=== PATIENT | female | born 1995 | race Caucasian/White ===

== ENCOUNTER 2020-06-11 20:42 | Observation (INO) ==
[2020-06-11 20:50] VITALS: BMI 21.6
[2020-06-11] MEDS ORDERED: NS 1000 ML 1,000 ML IV ONE (21:15)
[2020-06-11] MEDS ORDERED: ZOFRAN INJ 4 MG VIAL IVP ONE (21:15)
--- NOTE | 2020-06-11 21:15 | DR.NAUSEAF ---
HPI Time Seen Time Seen by Provider: 06/11/20 21:06 Primary Care Physician Primary Care Physician: NFD Complaints Chief Complaint Doctors Comments: Seen in [facility] 4 days ago for same. Says she got no RX for nausea Chief Complaint:: PT STATED SHE STARTED VOMITING , ACHING AND HAVING ABDOMINAL PAIN LAST WEEK. PT STATED TODAY THE SYMPTOMS ARE GETTING WORSE. Self Treatment fo Chief Complaint: TYLENOL AND MOTRIN Reviewed Nurses Notes Reviewed: Yes Source History Provided: Patient Mode of Arrival Mode of Arrival: Ambulatory Timing Onset of Chief Complaint: 06/04/20 Context Recent: denies Travel, Contact Exposure and None Possible Ingestion: Unknown History of: None Quality Quality: Food Particles Associated Signs and Symptoms Abdominal Pain Quality: Aching Abdominal Pain Location: Epigastric Symptoms: Abdominal Pain PMH PMH Past Medical History: No Past Surgical History: No Family History History of Family Medical Conditions: No Social History Alcohol Use: None Do you use any recreational Drugs:: No Lives With: Family Lives Where: Home Infectious screening In the last 2 months have you had wt loss of >10#?: NO Have you had fever, night sweats or hemotysis?: No Have you traveled outside the country in the last 6 months?: No Isolation: Standard ROS Review of Systems Constitutional: No Symptoms Reported Eyes: No Symptoms Reported ENTM: No Symptoms Reported Respiratoy: No Symptoms Reported Cardiovascular: No Symptoms Reported Gastrointestinal/Abdominal: Abdominal Pain and Vomiting Genitourinary: No Symptoms Reported Neurological: No Symptoms Reported Musculoskeletal: No Symptoms Reported Integumentary: No Symptoms Reported Hematologic/Lymphatic: No Symptoms Reported Endocrine: No Symptoms Reported Psychiatric: No Symptoms Reported All Other Systems: Reviewed and Negative PE Vital Signs Vitals: Temperature 99.2 F Pulse Rate 92 Respiratory Rate 18 Blood Pressure 112/72 O2 Sat by Pulse Oximetry 98 General Limitations: No Limitations General Appearance: Alert and In No Apparent Distress Head Head Exam: Normal Inspection, Atraumatic and Normocephalic Eyes Eye exam: Normal Appearance and EOMI ENT ENT Exam: Normal Exam and Other (poor dentition) Neck Neck Exam: Normal Inspection, Full ROM and Trachea Midline Chest Chest Inspection: Normal Inspection Respiratory Respiratory Exam: Normal Lung Sounds Bilat Respiratory Exam: Bilateral: Clear to Auscultation Cardiovascular Cardiovascular Exam: Regular Rate Abdominal Exam Abdominal Exam: Normal Inspection, Normal Bowel Sounds, Soft and Tenderness; negative Distention and Guarding Abdominal Tenderness: Epigastrium Rectal Rectal Exam: Deferred External Exam: Female: Deferred : Speculum Exam (Female): Deferred : Bimanual Exam (female): Deferred Back Back Exam: Normal Inspection Neurologic Neurological Exam: Alert, Oriented X3, CN II-XII Intact and Normal Gait Psychiatric Psychiatric Exam: Normal Affect Skin Skin Exam: Normal Color COURSE Treatment Treatment: 2200: due to elevated WBC will get Ct scan abdo/pelvis. Patient refusing IV. Consultation Called: 23:06 Call Returned: 23:07 Consultation Comments: case discussed with Yousuf admit to medical start antibiotics, NPO 2330: case discussed with DR. Au admit ROR Labs Reviewed Result Diagrams: 06/11/20 21:48 06/11/20 21:48 Laboratory: WBC 18.2 X10^3/uL (3.6-10.0) H 06/11/20 21:48 RBC 4.81 X10^6/uL (3.5-5.4) 06/11/20 21:48 Hgb 14.5 g/dL (12.0-16.0) 06/11/20 21:48 Hct 42.1 % (36.0-47.0) 06/11/20 21:48 MCV 87.5 fL (80.0-100.0) 06/11/20 21:48 MCH 30.2 pg (27.0-34.0) 06/11/20 21:48 MCHC 34.5 g/dL (33.0-35.0) 06/11/20 21:48 RDW 13.3 % (11.6-16.5) 06/11/20 21:48 Plt Count 214 X10^3/uL (150.0-450.0) 06/11/20 21:48 MPV 9.6 fL (7.4-11.0) 06/11/20 21:48 Neut % (Auto) 38.6 % (42.0-75.0) L 06/11/20 21:48 Lymph % (Auto) 54.3 % (21.0-51.0) H 06/11/20 21:48 [place] % (Auto) 5.9 % (0.0-13.0) 06/11/20 21:48 Eos % (Auto) 0.7 % (0.9-2.9) L 06/11/20 21:48 Baso % (Auto) 0.5 % (0.2-1.0) 06/11/20 21:48 Neut # (Auto) 7.0 x10^3/uL (2.2-4.8) H 06/11/20 21:48 Lymph # (Auto) 9.9 X10^3/uL (1.3-2.9) H 06/11/20 21:48 [place] # (Auto) 1.1 x10^3/uL (0.3-0.8) H 06/11/20 21:48 Eos # (Auto) 0.1 x10^3/uL (0.0-0.2) 06/11/20 21:48 Baso # (Auto) 0.1 X10^3/uL (0.0-0.1) 06/11/20 21:48 Absolute Nucleated RBC 0.2 /100WBC 06/11/20 21:48 Sodium 138 mmol/L (136-145) 06/11/20 21:48 Corrected Sodium TNP 06/11/20 21:48 Potassium 3.3 mmol/L (3.5-5.1) L 06/11/20 21:48 Chloride 97 mmol/L (98-107) L 06/11/20 21:48 Carbon Dioxide 30.2 mmol/L (21-32) 06/11/20 21:48 BUN 13 mg/dL (7-18) 06/11/20 21:48 Creatinine 0.64 mg/dL (0.55-1.02) 06/11/20 21:48 Est GFR (MDRD) Af Amer > 60 (>60) 06/11/20 21:48 Est GFR (MDRD) Non-Af > 60 (>60) 06/11/20 21:48 Glucose 99 mg/dL (65-99) 06/11/20 21:48 Calcium 9.6 mg/dL (8.5-10.1) 06/11/20 21:48 Corrected Calcium TNP 06/11/20 21:48 Total Bilirubin 1.20 mg/dL (0.2-1.0) H 06/11/20 21:48 AST 624 Units/L (15-37) H 06/11/20 21:48 ALT 1366 Units/L (12-78) H 06/11/20 21:48 Alkaline Phosphatase 317 Units/L (46-116) H 06/11/20 21:48 Total Protein 8.7 g/dL (6.4-8.2) H 06/11/20 21:48 Albumin 4.1 g/dL (3.4-5.0) 06/11/20 21:48 Globulin 4.6 g/dL (2.5-4.5) H 06/11/20 21:48 Albumin/Globulin Ratio 0.9 Ratio (1.1-2.1) L 06/11/20 21:48 Lipase 73 Units/L (73-393) 06/11/20 21:48 Specimen Type Clean catch urine 06/11/20 21:52 Urine Color Yellow (YELLOW) 06/11/20 21:52 Urine Appearance Clear (CLEAR) 06/11/20 21:52 Urine pH 7.0 (5.0 - 8.0) 06/11/20 21:52 Ur Specific [place] 1.010 (1.000-1.030) 06/11/20 21:52 Urine Protein 2+ (NEGATIVE) 06/11/20 21:52 Urine Glucose (UA) Negative (NEGATIVE) 06/11/20 21:52 Urine Ketones 2+ (NEGATIVE) 06/11/20 21:52 Urine Occult Blood Negative (NEGATIVE) 06/11/20 21:52 Urine Nitrite Negative (NEGATIVE) 06/11/20 21:52 Urine Bilirubin Negative (NEGATIVE) 06/11/20 21:52 Urine Urobilinogen 3+ (NORMAL) 06/11/20 21:52 Ur Leukocyte Esterase 1+ (NEGATIVE) 06/11/20 21:52 Urine RBC None seen /HPF (0-3) 06/11/20 21:52 Urine WBC 0-2 /HPF (0-5) 06/11/20 21:52 Ur Squamous Epith Cells Rare /HPF (NEGATIVE) 06/11/20 21:52 Urine Bacteria Trace /HPF (NEGATIVE) 06/11/20 21:52 Ur Culture Indicated? No/not indicated 06/11/20 21:52 Urine Opiates Screen Negative (NEG=<300) 06/11/20 21:52 Urine Methadone Screen Negative (NEG=<300) 06/11/20 21:52 Ur Barbiturates Screen Negative (NEG=<200) 06/11/20 21:52 Ur Phencyclidine Scrn Negative (NEG=<25) 06/11/20 21:52 Ur Amphetamines Screen Negative (NEG=<1000) 06/11/20 21:52 U Benzodiazepines Scrn Negative (NEG=<200) 06/11/20 21:52 Urine Cocaine Screen Negative (NEG=<300) 06/11/20 21:52 U Marijuana (THC) Screen Negative (NEG=<50) 06/11/20 21:52 XRAY XRAY Interpreted by: Radiologist X-ray Results: CT abdo/pelvis: no definite acute findings, questionable appenix inflammation Opioid Opioid Risk Tool Total: 0 Total Score Risk Category: Low Risk Copyright: John RADFORD predicting aberrant behaviors
[2020-06-11] MEDS ORDERED: ZOFRAN INJ 4 MG VIAL ONE (21:18)
[2020-06-11] MEDS ORDERED: NS 1000 ML 0 ML ONE (21:18)
[2020-06-11] MEDS ORDERED: ZOFRAN INJ 4 MG VIAL IM ONE (21:33)
[2020-06-11 21:58] LABS: BASOPHILS # (AUTO) 0.1 X10^3/uL (0.0-0.1); BASOPHILS % (AUTO) 0.5 % (0.2-1.0); EOSINOPHILS # (AUTO) 0.1 x10^3/uL (0.0-0.2); EOSINOPHILS % (AUTO) 0.7 % (0.9-2.9); HEMATOCRIT 42.1 % (36.0-47.0); HEMOGLOBIN 14.5 g/dL (12.0-16.0); LYMPHOCYTES # (AUTO) 9.9 X10^3/uL (1.3-2.9); LYMPHOCYTES % (AUTO) 54.3 % (21.0-51.0); MEAN CORPUSCULAR HEMOGLOBIN 30.2 pg (27.0-34.0); MEAN CORPUSCULAR HGB CONC 34.5 g/dL (33.0-35.0); MEAN CORPUSCULAR VOLUME 87.5 fL (80.0-100.0); MEAN PLATELET VOLUME 9.6 fL (7.4-11.0); MONOCYTES # (AUTO) 1.1 x10^3/uL (0.3-0.8); MONOCYTES % (AUTO) 5.9 % (0.0-13.0); NEUTROPHILS % (AUTO) 38.6 % (42.0-75.0); PLATELET COUNT 214 X10^3/uL (150.0-450.0); RED BLOOD COUNT 4.81 X10^6/uL (3.5-5.4); RED CELL DISTRIBUTION WIDTH 13.3 % (11.6-16.5); WHITE BLOOD COUNT 18.2 X10^3/uL (3.6-10.0)
[2020-06-11 22:02] LABS: BILIRUBIN,URINE NEGATIVE (NEGATIVE); BLOOD/HEMOGLOBIN,URINE NEGATIVE (NEGATIVE); GLUCOSE, URINE NEGATIVE (NEGATIVE); KETONES,URINE 2+ (NEGATIVE); LEUKOCYTE ESTERASE ,URINE 1+ (NEGATIVE); NITRITES,URINE NEGATIVE (NEGATIVE); PROTEIN,URINE 2+ (NEGATIVE); UROBILINOGEN,URINE 3+ (NORMAL)
[2020-06-11 22:17] LABS: APPEARANCE,URINE CLEAR (CLEAR); COLOR,URINE YELLOW (YELLOW)
[2020-06-11 22:18] LABS: RBC,URINE NONE SEEN /HPF (0-3); SQUAMOUS EPITHELIAL CELL,UR RARE /HPF (NEGATIVE)
[2020-06-11 22:19] LABS: BACTERIA,URINE TRACE /HPF (NEGATIVE)
[2020-06-11 22:42] LABS: ALBUMIN 4.1 g/dL (3.4-5.0); ALKALINE PHOSPHATASE 317 Units/L (46-116); ASPARTATE AMINO TRANSFERASE 624 Units/L (15-37); BLOOD UREA NITROGEN 13 mg/dL (7-18); CALCIUM 9.6 mg/dL (8.5-10.1); CARBON DIOXIDE 30.2 mmol/L (21-32); CHLORIDE 97 mmol/L (98-107); CREATININE 0.64 mg/dL (0.55-1.02); SODIUM 138 mmol/L (136-145); TOTAL PROTEIN 8.7 g/dL (6.4-8.2); eGFR NON BLACK RACES > 60 (>60)
[2020-06-11 22:43] LABS: ALANINE AMINOTRANSFERASE 1366 Units/L (12-78)
--- NOTE | 2020-06-11 22:44 | CT ---
STUDY: CT ABDOMEN AND PELVIS WITHOUT IV CONTRASTCOMPARISON: NoneTECHNIQUE: Axial images were obtained of the abdomen and pelvis without IV contrast. Sagittal and coronal reformatted images were provided. All images were reviewed in a variety of windows and levels.RADIATION REDUCTION TECHNIQUE: Automated exposure control, adjustment of the mA or kV according to patient size, or iterative reconstruction techniques were used.HISTORY: PT STATED SHE STARTED VOMITING, ACHING AND HAVING ABDOMINAL PAIN LAST WEEK. PT STATED TODAY THE SYMPTOMS ARE GETTING WORSE.FINDINGS:Please note that lack of IV contrast does limit evaluation of the soft tissues and vascular detail.The visualized lower lung zones are clear. The heart size is within normal limits. There is no evidence of a pericardial effusion.The liver, spleen, pancreas, adrenal glands, and kidneys are grossly unremarkable. The gallbladder is grossly unremarkable.There is no evidence of stones or signs of obstructive uropathy.The uterus is grossly unremarkable. The adnexa are not clearly visualized.The stomach, small bowel, and colon are grossly unremarkable. There is a tubular structure with a calcification measuring 9 mm in diameter near the cecum that is worrisome for a dilated appendix with an appendiculith. However, there are no surrounding inflammatory changes seen. Please note that this tubular structure which may represent the appendix is not seen in its entirety on this examination.There is no evidence of retroperitoneal or mesenteric lymphadenopathy.The visualized bones are unremarkable. There are no concerning lytic or blastic lesions identified.IMPRESSION:1. No evidence of stones or signs of obstructive uropathy2. No evidence of bowel obstruction or gastroenteritis3. There is a tubular structure with a focal calcification which measures 9 mm in diameter located near the cecum. This could represent a dilated appendix with an appendicalith. However, it should be noted that there are no surrounding inflammatory changes. Based on these imaging features, I would classify this as equivocal for acute appendicitis.4. No CT evidence of diverticulitisElectronically signed by: Sacha Lugo (Jun 11, 2020 22:42:39)
[2020-06-11] MEDS ORDERED: DEMEROL INJ IVP PRN (23:42)
[2020-06-11] MEDS ORDERED: ZOFRAN INJ 4 MG VIAL IVP PRN (23:42)
[2020-06-11] MEDS ORDERED: NS 1000 ML 1,000 ML ONE (23:51)
[2020-06-11] MEDS ORDERED: ZOSYN VIAL 3.375 GRAMS IV ONE (23:51)
[2020-06-11] MEDS ORDERED: NS 100 ML IV + SPIKE MINIBAG* 100 ML IV ONE (23:52)
[2020-06-12] MEDS: NS 1000 ML 1,000 ML IV SCH ×4 (00:05→21:15)
[2020-06-12] MEDS: ZOSYN VIAL 3.375 GRAMS 3.375 G in NS 100 ML IV + SPIKE MINIBAG* 100 ML IV SCH ×4 (00:06→21:14)
[2020-06-12] MEDS ORDERED: ZOFRAN INJ 4 MG VIAL ONE ×2 (01:17→08:51)
[2020-06-12] MEDS ORDERED: ZOSYN VIAL 3.375 GRAMS IV ONE ×2 (05:32→14:04)
[2020-06-12] MEDS ORDERED: NS 100 ML IV + SPIKE MINIBAG* 100 ML IV ONE ×2 (05:33→14:04)
[2020-06-12 05:37] LABS: BASOPHILS # (AUTO) 0.1 X10^3/uL (0.0-0.1); BASOPHILS % (AUTO) 0.5 % (0.2-1.0); EOSINOPHILS # (AUTO) 0.2 x10^3/uL (0.0-0.2); EOSINOPHILS % (AUTO) 1.8 % (0.9-2.9); HEMATOCRIT 39.7 % (36.0-47.0); HEMOGLOBIN 13.4 g/dL (12.0-16.0); LYMPHOCYTES # (AUTO) 7.1 X10^3/uL (1.3-2.9); MEAN CORPUSCULAR HEMOGLOBIN 29.6 pg (27.0-34.0); MEAN CORPUSCULAR HGB CONC 33.8 g/dL (33.0-35.0); MEAN CORPUSCULAR VOLUME 87.3 fL (80.0-100.0); MEAN PLATELET VOLUME 10.2 fL (7.4-11.0); MONOCYTES # (AUTO) 1.1 x10^3/uL (0.3-0.8); MONOCYTES % (AUTO) 8.9 % (0.0-13.0); NEUTROPHILS # (AUTO) 3.4 x10^3/uL (2.2-4.8); NEUTROPHILS % (AUTO) 28.8 % (42.0-75.0); PLATELET COUNT 210 X10^3/uL (150.0-450.0); RED BLOOD COUNT 4.55 X10^6/uL (3.5-5.4); RED CELL DISTRIBUTION WIDTH 13.5 % (11.6-16.5); WHITE BLOOD COUNT 11.9 X10^3/uL (3.6-10.0)
[2020-06-12 06:52] LABS: ALANINE AMINOTRANSFERASE > 1000 Units/L (12-78); ALBUMIN 3.5 g/dL (3.4-5.0); ALKALINE PHOSPHATASE 272 Units/L (46-116); ASPARTATE AMINO TRANSFERASE 469 Units/L (15-37); BLOOD UREA NITROGEN 11 mg/dL (7-18); CALCIUM 8.8 mg/dL (8.5-10.1); CHLORIDE 100 mmol/L (98-107); CREATININE 0.61 mg/dL (0.55-1.02); SODIUM 138 mmol/L (136-145); TOTAL PROTEIN 7.8 g/dL (6.4-8.2); eGFR NON BLACK RACES > 60 (>60)
--- NOTE | 2020-06-12 08:06 | US ---
HISTORYABD PAIN, ELEVATED LFTSTUDYGALL BLADDERCOMPARISONCT abdomen and pelvis from 06/11/2020.TECHNIQUERight upper quadrant sonogramFINDINGSLiver appears normal and measures up to 60 cm. Portal vein has hepatopetal flow. Gallbladder appears normal without sludge, polyps, stones, Barragan sign, or wall thickening. Common duct normal at 4 mm. The right kidney measures 11.6 cm and appears benign. IVC appears normal. Visualized pancreas appears normal.IMPRESSIONNormal right upper quadrant sonogram on the images provided.Electronically signed by: Theo Grimes (Jun 12, 2020 08:05:03)
[2020-06-12] MEDS: ZOFRAN INJ 4 MG VIAL IVP PRN ×2 (08:53→16:46)
--- NOTE | 2020-06-12 10:21 | DR.H&P ---
H&P History & Physical for Day of: H&P Date: 06/12/20 Chief Complaint Chief Complaint: N/V and abdominal pain Allergies Allergies Allergy/AdvReac Type Severity Reaction Status Date / Time No Known Drug Allergies Allergy Verified 06/11/20 20:56 History of Present Illness History of Present Illness: Cecile is a 24 y.o female who presented with intractable nausea, vomiting and abdominal pain. She also reports fever and chills. She states her Sx have been present for a week. She went to [place] [facility] with similar Sx and was told she has a miscarriage due to heavy menstrual bleeding. She states she started having abdominal pain 3 days ago. She states it's in the center and right side. She had diarrhea but that has resolved. She states she is not able to keep anything down including liquids. In the ED, CTAP showed concern for acute appendicitis due to dilated appendix but no inflammatory changes were seen. Labs showed elevated LFTs, lipase normal, low potassium. She was started on IVF, anti-emetics, pain control and kept NPO. She was also started on Zosyn. Dr. Quinones was also contacted and will be seeing the patient this morning. Labs: Lipase 73 AST/ALT trending down, Alk Phos 317 HCG (-) WBC: 11.9 UDS (-) Gallbladder U/S: normal, no gallstones and sludge seen, no GB wall thickening Plan: continue IV hydration, zofran and pain control. Continue NPO. Follow surgery recommendation, monitor AM labs. Past Surgical History Surgical History: No History Family History Family Medical History: Diabetes Mellitus and Cancer Social History Does patient currently use any type of tobacco product: Yes Have you used tobacco products in the last 12 months: Yes Type of Tobacco Use: Cigarettes Alcohol Use: None Drug Use: Prescription Drugs Prescription drug monitoring program results: PDMP reviewed and no concerns identified Medications Home Medications: No Known Drug Allergies Allergy (Verified 06/11/20 20:56) CONTINUE taking the following medications NK 06/12/20 [History] Labs Result Diagrams: 06/12/20 05:51 06/12/20 05:51 Labs: Laboratory WBC 11.9 X10^3/uL (3.6-10.0) H 06/12/20 05:51 RBC 4.55 X10^6/uL (3.5-5.4) 06/12/20 05:51 Hgb 13.4 g/dL (12.0-16.0) 06/12/20 05:51 Hct 39.7 % (36.0-47.0) 06/12/20 05:51 MCV 87.3 fL (80.0-100.0) 06/12/20 05:51 MCH 29.6 pg (27.0-34.0) 06/12/20 05:51 MCHC 33.8 g/dL (33.0-35.0) 06/12/20 05:51 RDW 13.5 % (11.6-16.5) 06/12/20 05:51 Plt Count 210 X10^3/uL (150.0-450.0) 06/12/20 05:51 MPV 10.2 fL (7.4-11.0) 06/12/20 05:51 Neut % (Auto) 28.8 % (42.0-75.0) L 06/12/20 05:51 Lymph % (Auto) 60.0 % (21.0-51.0) H 06/12/20 05:51 [place] % (Auto) 8.9 % (0.0-13.0) 06/12/20 05:51 Eos % (Auto) 1.8 % (0.9-2.9) 06/12/20 05:51 Baso % (Auto) 0.5 % (0.2-1.0) 06/12/20 05:51 Neut # (Auto) 3.4 x10^3/uL (2.2-4.8) 06/12/20 05:51 Lymph # (Auto) 7.1 X10^3/uL (1.3-2.9) H 06/12/20 05:51 [place] # (Auto) 1.1 x10^3/uL (0.3-0.8) H 06/12/20 05:51 Eos # (Auto) 0.2 x10^3/uL (0.0-0.2) 06/12/20 05:51 Baso # (Auto) 0.1 X10^3/uL (0.0-0.1) 06/12/20 05:51 Absolute Nucleated RBC 0.1 /100WBC 06/12/20 05:51 Sodium 138 mmol/L (136-145) 06/12/20 05:51 Corrected Sodium TNP 06/12/20 05:51 Potassium 3.4 mmol/L (3.5-5.1) L 06/12/20 05:51 Chloride 100 mmol/L (98-107) 06/12/20 05:51 Carbon Dioxide 27.0 mmol/L (21-32) 06/12/20 05:51 BUN 11 mg/dL (7-18) 06/12/20 05:51 Creatinine 0.61 mg/dL (0.55-1.02) 06/12/20 05:51 Est GFR (MDRD) Af Amer > 60 (>60) 06/12/20 05:51 Est GFR (MDRD) Non-Af > 60 (>60) 06/12/20 05:51 Glucose 101 mg/dL (65-99) H 06/12/20 05:51 POC Glucose (mg/dL) 88 mg/dL (65-99) 06/12/20 06:16 Calcium 8.8 mg/dL (8.5-10.1) 06/12/20 05:51 Corrected Calcium TNP 06/12/20 05:51 Total Bilirubin 1.10 mg/dL (0.2-1.0) H 06/12/20 05:51 AST 469 Units/L (15-37) H 06/12/20 05:51 ALT > 1000 Units/L (12-78) H 06/12/20 05:51 Alkaline Phosphatase 272 Units/L (46-116) H 06/12/20 05:51 Total Protein 7.8 g/dL (6.4-8.2) 06/12/20 05:51 Albumin 3.5 g/dL (3.4-5.0) 06/12/20 05:51 Globulin 4.3 g/dL (2.5-4.5) 06/12/20 05:51 Albumin/Globulin Ratio 0.8 Ratio (1.1-2.1) L 06/12/20 05:51 Lipase 73 Units/L (73-393) 06/11/20 21:48 HCG, Quant < 1 mIU/mL (0-6) 06/12/20 05:51 Specimen Type Clean catch urine 06/11/20 21:52 Urine Color Yellow (YELLOW) 06/11/20 21:52 Urine Appearance Clear (CLEAR) 06/11/20 21:52 Urine pH 7.0 (5.0 - 8.0) 06/11/20 21:52 Ur Specific [place] 1.010 (1.000-1.030) 06/11/20 21:52 Urine Protein 2+ (NEGATIVE) 06/11/20 21:52 Urine Glucose (UA) Negative (NEGATIVE) 06/11/20 21:52 Urine Ketones 2+ (NEGATIVE) 06/11/20 21:52 Urine Occult Blood Negative (NEGATIVE) 06/11/20 21:52 Urine Nitrite Negative (NEGATIVE) 06/11/20 21:52 Urine Bilirubin Negative (NEGATIVE) 06/11/20 21:52 Urine Urobilinogen 3+ (NORMAL) 06/11/20 21:52 Ur Leukocyte Esterase 1+ (NEGATIVE) 06/11/20 21:52 Urine RBC None seen /HPF (0-3) 06/11/20 21:52 Urine WBC 0-2 /HPF (0-5) 06/11/20 21:52 Ur Squamous Epith Cells Rare /HPF (NEGATIVE) 06/11/20 21:52 Urine Bacteria Trace /HPF (NEGATIVE) 06/11/20 21:52 Ur Culture Indicated? No/not indicated 06/11/20 21:52 Urine Opiates Screen Negative (NEG=<300) 06/11/20 21:52 Urine Methadone Screen Negative (NEG=<300) 06/11/20 21:52 Ur Barbiturates Screen Negative (NEG=<200) 06/11/20 21:52 Ur Phencyclidine Scrn Negative (NEG=<25) 06/11/20 21:52 Ur Amphetamines Screen Negative (NEG=<1000) 06/11/20 21:52 U Benzodiazepines Scrn Negative (NEG=<200) 06/11/20 21:52 Urine Cocaine Screen Negative (NEG=<300) 06/11/20 21:52 U Marijuana (THC) Screen Negative (NEG=<50) 06/11/20 21:52 Review of Systems Constitutional: Fever, Chills and Weakness Eyes: No Symptoms Reported ENT: No Symptoms Reported Respiratory: No Symptoms Reported Cardiovascular: No Symptoms Reported Gastrointestinal: Nausea, Vomiting, Abdominal Pain and Diarrhea Genitourinary: No Symptoms Reported Musculoskeletal: No Symptoms Reported Skin: No Symptoms Reported Neurological: No Symptoms Reported Physical Exam Vital Signs: Temperature 99.0 F Pulse Rate [Right Radial] 77 Pulse Rate 92 Respiratory Rate 18 Blood Pressure [Right Arm] 94/51 Blood Pressure 112/72 O2 Sat by Pulse Oximetry 95 Oriented: Normal Eyes: Normal Ear: Normal Nose: Normal Throat: Normal Respiratory: Clear Throughout Cardiovascular: Normal Auscultation: Bowel Sounds: Increased Tenderness: RLQ, Periumbilical and Mild Skin: Normal Musculoskeletal: Normal Psychiatric: Normal Mood Description: Calm Affect: Normal Speech Pattern: Clear and Appropriate Assessment/Plan (1) Intractable nausea and vomiting: Status: Acute (2) Abdominal pain: Qualifiers: Abdominal location: right lower quadrant Qualified Code(s): R10.31 - Right lower quadrant pain Status: Acute (3) Transaminitis: Status: Acute (4) Appendicitis, unqualified: Qualifiers: Appendicitis type: unspecified Qualified Code(s): K37 - Unspecified appendicitis Status: Acute (5) Hypokalemia: Status: Acute (6) Dehydration: Status: Acute Review H&P Reviewed: Yes Patient was examined?: Yes
[2020-06-12] MEDS ORDERED: KLOR-CON PO PRN (19:30)
[2020-06-12] MEDS ORDERED: POTASSIUM CHLORIDE LIQ 20 MEQ UDC PO PRN (19:30)
[2020-06-12] MEDS ORDERED: POTASSIUM CHL 40 MEQ/NS 0.45% 500 ML IV PRN (19:30)
[2020-06-12] MEDS ORDERED: K-DUR TAB 20 MEQ PO PRN (19:30)
[2020-06-12] MEDS ORDERED: MICRO K EXTEN CAP 10 MEQ PO PRN (19:30)
[2020-06-12] MEDS ORDERED: POTASSIUM CHL 60 MEQ/NS 0.45% 500 ML IV PRN (19:30)
[2020-06-12] MEDS ORDERED: MAGNESIUM SULFATE 1 GRAM/100 mL PREMIX 1 GM/100 ML BAG IV PRN (19:30)
[2020-06-12] MEDS ORDERED: K-RIDER 10 MEQ/NS 100 ML 10 MEQ/100 ML BAG IV PRN (19:30)
[2020-06-13] MEDS: NS 1000 ML 1,000 ML IV SCH ×2 (03:42→16:35)
[2020-06-13] MEDS: ZOFRAN INJ 4 MG VIAL IVP PRN ×3 (04:20→23:24)
[2020-06-13 05:34] LABS: BASOPHILS % (AUTO) 0.4 % (0.2-1.0); EOSINOPHILS # (AUTO) 0.3 x10^3/uL (0.0-0.2); EOSINOPHILS % (AUTO) 2.8 % (0.9-2.9); HEMATOCRIT 40.8 % (36.0-47.0); HEMOGLOBIN 13.7 g/dL (12.0-16.0); LYMPHOCYTES % (AUTO) 61.3 % (21.0-51.0); MEAN CORPUSCULAR HEMOGLOBIN 29.7 pg (27.0-34.0); MEAN CORPUSCULAR HGB CONC 33.6 g/dL (33.0-35.0); MEAN CORPUSCULAR VOLUME 88.6 fL (80.0-100.0); MEAN PLATELET VOLUME 10.4 fL (7.4-11.0); MONOCYTES # (AUTO) 0.8 x10^3/uL (0.3-0.8); MONOCYTES % (AUTO) 7.7 % (0.0-13.0); NEUTROPHILS # (AUTO) 2.7 x10^3/uL (2.2-4.8); NEUTROPHILS % (AUTO) 27.8 % (42.0-75.0); PLATELET COUNT 241 X10^3/uL (150.0-450.0); RED BLOOD COUNT 4.61 X10^6/uL (3.5-5.4); RED CELL DISTRIBUTION WIDTH 13.6 % (11.6-16.5); WHITE BLOOD COUNT 9.8 X10^3/uL (3.6-10.0)
[2020-06-13 05:49] LABS: ALANINE AMINOTRANSFERASE 934 Units/L (12-78); ALBUMIN 3.6 g/dL (3.4-5.0); ALKALINE PHOSPHATASE 246 Units/L (46-116); ASPARTATE AMINO TRANSFERASE 295 Units/L (15-37); BLOOD UREA NITROGEN 9 mg/dL (7-18); CALCIUM 8.6 mg/dL (8.5-10.1); CARBON DIOXIDE 27.9 mmol/L (21-32); CHLORIDE 102 mmol/L (98-107); CREATININE 0.61 mg/dL (0.55-1.02); MAGNESIUM 2.2 mg/dL (1.7-2.9); SODIUM 140 mmol/L (136-145); eGFR NON BLACK RACES > 60 (>60)
[2020-06-13] MEDS: ZOSYN VIAL 3.375 GRAMS 3.375 G in NS 100 ML IV + SPIKE MINIBAG* 100 ML IV SCH ×3 (06:00→21:35)
[2020-06-13 06:31] LABS: PLATELET MORPHOLOGY COMMENT NORMAL (NORMAL)
--- NOTE | 2020-06-13 21:27 | PCM.PROG ---
Progress Note - Progress Note for Day of Date of Exam: 06/13/20 - Subjective Subjective: IS A 24 YEAR OLD FEMALE WHO WAS ADMITTED DUE TO INTRACTABLE NAUSEA, VOMITING, AND ABDOMINAL PAIN. HER LIVER ENZYMES WERE MARKEDLY ELEVATED ON ADMISSION. PATIENT IS AN IV HEROIN USER. SHE ADMITS TO SHARED USE OF DIRTY NEEDLES. SHE ADMITS SHARING NEEDLES WITH SOMEONE WHO IS HEPATITS POSITVE. TODAY, SHE IS ALERT AND ORIENTED, LYING IN BED ON MORNING ROUNDS. SHE CONTINUES WITH MILD, DIFFUSE ABDOMINAL PAIN, BUT REPORTS SLIGHT IMPROVEMENT SINCE ONE DAY PRIOR. ON EXAMINATION, HEART IS REGULAR IN RATE AND RHYTHM. BILATERAL LUNGS ARE CLEAR TO AUSCULATATION. ABDOMEN IS ROUND, SOFT, AND NOTED WITH DIFFUSE TENDERNESS TO PALPATION. NORMAL BOWEL SOUNDS NOTED IN ALL QUADRANTS. HER VITALS THIS MORNING ARE: 97.9-66-18-100%-102/72. LABS WERE OBTAINED. ABNORMAL LAB VALUES INCLUDE THE FOLLOWING: AST 295, ALT 934, ALK PHOS 246. HEPATITS PANEL PENDING. GALLBLADDER US OBTAINED YESTERDAY AND IS NEGATIVE. ABDOMEN/PELVIS CT WITHOUT CONTRAST REVEALED There is a tubular structure with a focal calcification which measures 9 mm in diameter located near the cecum. This could represent a dilated appendix with an appendicalith. However, it should be noted that there are no surrounding inflammatory changes. DID CONSULT WITH PATIENT AND DID NOT FEEL THAT THERE WAS EVIDENCE OF ACUTE SURGICAL ABDOMEN. SHE IS CURRENTLY RECEIVING NS AT 125 ML/HR, ZOSYN 3.375G IV TID, DEMEROL 25MG IV Q6H PRN, ZOFRAN 4MG IV Q6H PRN, AND THE POTASSIUM AND MAGNESIUM PROTOCOLS. WE WILL CONTINUE WITH CURRENT PLAN OF CARE TODAY. OTHERWISE, WE WILL FOLLOW UP WITH AM LABS AND CONTINUE TO MONITOR. - Past Medical Family Social History Past Med/Fam/Surg Hx: No changes since H&P Allergies: Allergies No Known Drug Allergies Allergy (Verified 06/11/20 20:56) - Review of Systems ROS: No change since H&P - Vital Signs and I&O's Vital Signs: Temperature 98.4 F Pulse Rate [Right Radial] 56 Pulse Rate 92 Respiratory Rate 18 Blood Pressure [Right Arm] 120/69 Blood Pressure 112/72 O2 Sat by Pulse Oximetry 98 Intake and Output: Intake & Output 06/11/20 06/12/20 06/13/20 06/14/20 11:59 11:59 11:59 11:59 Intake Total 600 / 600 1157 / 1157 495 / 495 Balance 600 / 600 1157 / 1157 495 / 495 - Physical Exam Oriented: Normal Eyes: Normal Ear: Normal Nose: Normal Throat: Normal Respiratory: Normal, Generalized Cardiovascular: Normal : Normal Auscultation: Bowel Sounds: Normal Palpation: Normal Tenderness: Diffuse, Periumbilical, Mild Skin: Normal Musculoskeletal: Normal Psychiatric: Normal Mood Description: Calm Affect: Normal Speech Pattern: Clear, Appropriate - Laboratory and Diagnostics Result Diagrams: 06/13/20 04:05 06/13/20 04:05 Labs: 06/12/20 00:02 Blood Blood Culture - Preliminary 06/11/20 23:56 Blood Blood Culture - Preliminary Laboratory WBC 9.8 X10^3/uL (3.6-10.0) 06/13/20 04:05 RBC 4.61 X10^6/uL (3.5-5.4) 06/13/20 04:05 Hgb 13.7 g/dL (12.0-16.0) 06/13/20 04:05 Hct 40.8 % (36.0-47.0) 06/13/20 04:05 MCV 88.6 fL (80.0-100.0) 06/13/20 04:05 MCH 29.7 pg (27.0-34.0) 06/13/20 04:05 MCHC 33.6 g/dL (33.0-35.0) 06/13/20 04:05 RDW 13.6 % (11.6-16.5) 06/13/20 04:05 Plt Count 241 X10^3/uL (150.0-450.0) 06/13/20 04:05 Plt Count Comment Adequate (ADEQUATE) 06/13/20 04:05 MPV 10.4 fL (7.4-11.0) 06/13/20 04:05 Neut % (Auto) 27.8 % (42.0-75.0) L 06/13/20 04:05 Lymph % (Auto) 61.3 % (21.0-51.0) H 06/13/20 04:05 [place] % (Auto) 7.7 % (0.0-13.0) 06/13/20 04:05 Eos % (Auto) 2.8 % (0.9-2.9) 06/13/20 04:05 Baso % (Auto) 0.4 % (0.2-1.0) 06/13/20 04:05 Neut # (Auto) 2.7 x10^3/uL (2.2-4.8) 06/13/20 04:05 Lymph # (Auto) 6.0 X10^3/uL (1.3-2.9) H 06/13/20 04:05 [place] # (Auto) 0.8 x10^3/uL (0.3-0.8) 06/13/20 04:05 Eos # (Auto) 0.3 x10^3/uL (0.0-0.2) H 06/13/20 04:05 Baso # (Auto) 0.0 X10^3/uL (0.0-0.1) 06/13/20 04:05 Absolute Nucleated RBC 0.1 /100WBC 06/13/20 04:05 Total Counted 100 06/13/20 04:05 Neutrophils % (Manual) 19 % (39-76) L 06/13/20 04:05 Lymphocytes % (Manual) 69 % (13-43) H 06/13/20 04:05 Monocytes % (Manual) 8 % (4-9) 06/13/20 04:05 Eosinophils % (Manual) 4 % (0-6) 06/13/20 04:05 Plt Morphology Comment Normal (NORMAL) 06/13/20 04:05 RBC Morphology Normal (NORMAL) 06/13/20 04:05 Sodium 140 mmol/L (136-145) 06/13/20 04:05 Corrected Sodium TNP 06/13/20 04:05 Potassium 3.5 mmol/L (3.5-5.1) 06/13/20 04:05 Chloride 102 mmol/L (98-107) 06/13/20 04:05 Carbon Dioxide 27.9 mmol/L (21-32) 06/13/20 04:05 BUN 9 mg/dL (7-18) 06/13/20 04:05 Creatinine 0.61 mg/dL (0.55-1.02) 06/13/20 04:05 Est GFR (MDRD) Af Amer > 60 (>60) 06/13/20 04:05 Est GFR (MDRD) Non-Af > 60 (>60) 06/13/20 04:05 Glucose 83 mg/dL (65-99) 06/13/20 04:05 POC Glucose (mg/dL) 71 mg/dL (65-99) 06/13/20 21:14 Calcium 8.6 mg/dL (8.5-10.1) 06/13/20 04:05 Corrected Calcium TNP 06/13/20 04:05 Magnesium 2.2 mg/dL (1.7-2.9) 06/13/20 04:05 Total Bilirubin 1.00 mg/dL (0.2-1.0) 06/13/20 04:05 AST 295 Units/L (15-37) H 06/13/20 04:05 ALT 934 Units/L (12-78) H 06/13/20 04:05 Alkaline Phosphatase 246 Units/L (46-116) H 06/13/20 04:05 Total Protein 8.0 g/dL (6.4-8.2) 06/13/20 04:05 Albumin 3.6 g/dL (3.4-5.0) 06/13/20 04:05 Globulin 4.4 g/dL (2.5-4.5) 06/13/20 04:05 Albumin/Globulin Ratio 0.8 Ratio (1.1-2.1) L 06/13/20 04:05 Lipase 73 Units/L (73-393) 06/11/20 21:48 HCG, Quant < 1 mIU/mL (0-6) 06/12/20 05:51 Specimen Type Clean catch urine 06/11/20 21:52 Urine Color Yellow (YELLOW) 06/11/20 21:52 Urine Appearance Clear (CLEAR) 06/11/20 21:52 Urine pH 7.0 (5.0 - 8.0) 06/11/20 21:52 Ur Specific [place] 1.010 (1.000-1.030) 06/11/20 21:52 Urine Protein 2+ (NEGATIVE) 06/11/20 21:52 Urine Glucose (UA) Negative (NEGATIVE) 06/11/20 21:52 Urine Ketones 2+ (NEGATIVE) 06/11/20 21:52 Urine Occult Blood Negative (NEGATIVE) 06/11/20 21:52 Urine Nitrite Negative (NEGATIVE) 06/11/20 21:52 Urine Bilirubin Negative (NEGATIVE) 06/11/20 21:52 Urine Urobilinogen 3+ (NORMAL) 06/11/20 21:52 Ur Leukocyte Esterase 1+ (NEGATIVE) 06/11/20 21:52 Urine RBC None seen /HPF (0-3) 06/11/20 21:52 Urine WBC 0-2 /HPF (0-5) 06/11/20 21:52 Ur Squamous Epith Cells Rare /HPF (NEGATIVE) 06/11/20 21:52 Urine Bacteria Trace /HPF (NEGATIVE) 06/11/20 21:52 Ur Culture Indicated? No/not indicated 06/11/20 21:52 Urine Opiates Screen Negative (NEG=<300) 06/11/20 21:52 Urine Methadone Screen Negative (NEG=<300) 06/11/20 21:52 Ur Barbiturates Screen Negative (NEG=<200) 06/11/20 21:52 Ur Phencyclidine Scrn Negative (NEG=<25) 06/11/20 21:52 Ur Amphetamines Screen Negative (NEG=<1000) 06/11/20 21:52 U Benzodiazepines Scrn Negative (NEG=<200) 06/11/20 21:52 Urine Cocaine Screen Negative (NEG=<300) 06/11/20 21:52 U Marijuana (THC) Screen Negative (NEG=<50) 06/11/20 21:52 - Plan (1) Abdominal pain Status: Acute Qualifiers: Abdominal location: generalized Qualified Code(s): R10.84 - Generalized abdominal pain (2) Intractable nausea and vomiting Status: Acute (3) Hypokalemia Status: Acute
[2020-06-14] MEDS: NS 1000 ML 1,000 ML IV SCH ×2 (04:24→06:10)
[2020-06-14] MEDS: ZOSYN VIAL 3.375 GRAMS 3.375 G in NS 100 ML IV + SPIKE MINIBAG* 100 ML IV SCH (05:55)
[2020-06-14] MEDS: ZOFRAN INJ 4 MG VIAL IVP PRN (05:55)
[2020-06-14 07:08] LABS: BASOPHILS % (AUTO) 0.6 % (0.2-1.0); EOSINOPHILS # (AUTO) 0.3 x10^3/uL (0.0-0.2); EOSINOPHILS % (AUTO) 3.7 % (0.9-2.9); HEMATOCRIT 40.2 % (36.0-47.0); HEMOGLOBIN 13.7 g/dL (12.0-16.0); LYMPHOCYTES # (AUTO) 4.1 X10^3/uL (1.3-2.9); LYMPHOCYTES % (AUTO) 49.2 % (21.0-51.0); MEAN CORPUSCULAR HGB CONC 34.2 g/dL (33.0-35.0); MEAN CORPUSCULAR VOLUME 87.6 fL (80.0-100.0); MEAN PLATELET VOLUME 9.5 fL (7.4-11.0); MONOCYTES # (AUTO) 0.8 x10^3/uL (0.3-0.8); MONOCYTES % (AUTO) 9.5 % (0.0-13.0); NEUTROPHILS # (AUTO) 3.1 x10^3/uL (2.2-4.8); PLATELET COUNT 262 X10^3/uL (150.0-450.0); RED BLOOD COUNT 4.58 X10^6/uL (3.5-5.4); RED CELL DISTRIBUTION WIDTH 13.7 % (11.6-16.5); WHITE BLOOD COUNT 8.3 X10^3/uL (3.6-10.0)
[2020-06-14 07:19] LABS: ALANINE AMINOTRANSFERASE 620 Units/L (12-78); ALBUMIN 3.4 g/dL (3.4-5.0); ALKALINE PHOSPHATASE 207 Units/L (46-116); ASPARTATE AMINO TRANSFERASE 129 Units/L (15-37); BLOOD UREA NITROGEN 8 mg/dL (7-18); CALCIUM 8.7 mg/dL (8.5-10.1); CARBON DIOXIDE 26.7 mmol/L (21-32); CHLORIDE 105 mmol/L (98-107); SODIUM 142 mmol/L (136-145); TOTAL PROTEIN 7.8 g/dL (6.4-8.2); eGFR NON BLACK RACES > 60 (>60)
[2020-06-14 10:07] VITALS: BP 91/58
[2020-06-17 07:00] LABS: HEPATITIS B SURFACE ANTIGEN Negative (Negative)
== END 2020-06-14 10:55 | disposition home or self-care (01) ==
LOC: ER 20:43 → OBS 20:43 → MED/SURG 06-12 14:43
PROVIDERS: ADMIT Internal Medicine; ATTEND Internal Medicine
DX: E86.0 Dehydration; Z53.29 Procedure and treatment not carried out because of patient's decision for other reasons; E87.6 Hypokalemia; Z20.6 Contact with and (suspected) exposure to human immunodeficiency virus [HIV]; R11.2 Nausea with vomiting, unspecified; F11.90 Opioid use, unspecified, uncomplicated; R10.31 Right lower quadrant pain; R74.01 Elevation of levels of liver transaminase levels